=== PATIENT | male | born 1945 | race African-American/Black ===

== ENCOUNTER 2021-10-16 10:54 | Inpatient (IN) | payer OTHER ==
[~2021-10-16] VITALS: Ht 175.3 cm; Wt 88.0 kg
[2021-10-16] MEDS ORDERED: HEPARIN SODIUM (PORCINE) 5000 UNITS/ML 1ML VIAL ONE (11:14)
[2021-10-16] MEDS ORDERED: HEPARIN 1,000 UNITS/ml 1ML VIAL IV ONE (11:15)
[2021-10-16 11:30] LABS: Basophils # (auto) 0 10 ^3/uL (0-0.2); Basophils % (auto) 0.4 % (0.0-2.0); Eosinophils # (auto) 0.1 10 ^3/uL (0-0.8); Eosinophils % (auto) 0.9 % (0.0-7.0); Hematocrit 36.3 % (41.0-53.0); Hemoglobin 12.1 g/dL (13.5-17.5); Lymphocytes % (auto) 24.4 % (10.0-50.0); Mean Corpuscular Hemoglobin 27.9 pg (28.0-32.0); Mean Corpuscular Hgb Conc. 33.3 g/dL (32.0-36.0); Mean Corpuscular Volume 83.9 fL (80.0-100.0); Monocytes # (auto) 0.6 10 ^3/uL (0-1.3); Monocytes % (auto) 7.7 % (0.0-12.0); Neutrophils # (auto) 5.6 10 ^3/uL (1.6-8.6); Neutrophils % (auto) 66.6 % (37.0-80.0); Nucleated Red Blood Cells % 0.1 %; Red Blood Cells 4.32 10^6/uL (4.5-5.90); Red Cell Distribution Width 14.7 % (11.8-14.3); White Blood Cell 8.4 10^3/uL (4.4-10.8)
[2021-10-16] MEDS ORDERED: MORPHINE SULFATE INJECTION 2 MG/ML SYRG IV ONE (11:30)
[2021-10-16] MEDS ORDERED: ONDANSETRON HCL 4 MG/2 ML VIAL IV ONE (11:30)
[2021-10-16 12:30] LABS: Albumin 3.4 g/dL (3.4-5.0); Calcium 8.6 mg/dL (8.5-10.1); Magnesium 2.7 mg/dL (1.6-2.6)
[2021-10-16 12:31] LABS: INR 1.1 (0.9-1.15)
[2021-10-16 12:38] LABS: Bilirubin, Total 0.5 mg/dL (0.2-1.0); Total Protein 6.8 g/dL (6.4-8.2)
[2021-10-16 12:51] LABS: Partial Thromboplastin Time 88.9 sec (23.6-33.0)
[2021-10-16] MEDS ORDERED: NITROGLYCERIN 0.4 MG SL TAB SL PRN ×2 (13:15→15:00)
[2021-10-16] MEDS ORDERED: ONDANSETRON HCL 4 MG/2 ML VIAL IV PRN (13:15)
[2021-10-16] MEDS ORDERED: LACTATED RINGER'S 1,000 ML IV ONE (13:15)
[2021-10-16] MEDS ORDERED: DEXTROSE (50%) 50ML SYRG IV PRN (13:15)
[2021-10-16] MEDS ORDERED: MORPHINE SULFATE INJECTION 2 MG/ML SYRG IV PRN ×3 (13:15→15:00)
[2021-10-16] MEDS ORDERED: INSU1INJ4 SC (13:37)
[2021-10-16] MEDS ORDERED: OXYC325T10 PO (13:37)
[2021-10-16] MEDS ORDERED: ASPI-498 PO (13:37)
[2021-10-16] MEDS ORDERED: TAMS0.4C36 PO (13:37)
[2021-10-16] MEDS ORDERED: SIMV-8 PO (13:37)
[2021-10-16] MEDS ORDERED: LISI2.5T47 PO (13:37)
[2021-10-16] MEDS ORDERED: GABA300C10 PO (13:38)
[2021-10-16] MEDS ORDERED: ALUM & MAG HYDROX-SIMETH LIQ(MAALOX) 30 ML PO PRN (15:00)
[2021-10-16] MEDS ORDERED: ACETAMINOPHEN 325 MG TAB PO PRN (15:00)
[2021-10-16] MEDS ORDERED: TEMAZEPAM 15 MG CAP PO PRN (15:00)
[2021-10-16] MEDS ORDERED: DOCUSATE SOD 100 MG CAP PO PRN (15:00)
[2021-10-16] MEDS ORDERED: ATORVASTATIN 20 MG TAB PO ONE (15:00)
[2021-10-16] MEDS ORDERED: METOCLOPRAMIDE HCL 5MG/ml INJ 2ml VIAL IV PRN (15:00)
[2021-10-16] MEDS ORDERED: hydrALAZINE HCL 20 MG/ML VL IV PRN (15:00)
[2021-10-16 15:15] LABS: Cholesterol 147 mg/dL (< 200); HDL Cholesterol 82 mg/dL (40-59); LDL Cholesterol 48 mg/dL (< 100); Triglycerides 49 mg/dL (< 150)
[2021-10-16] MEDS: SODIUM CHLORIDE 0.9% 1,000 ML IV SCH ×2 (15:30→15:58)
[2021-10-16] MEDS ORDERED: CLOPIDOGREL 300 MG TAB PO ONE (17:00)
[2021-10-16] MEDS: ACCU-CHEK COMFORT CURVE STRIP VI SCH ×2 (17:08→22:15)
[2021-10-16] MEDS: InsuLIN REG 1unit/0.01ml Soln (100units/ml) SC SCH ×2 (17:34→22:34)
[2021-10-16] MEDS: TAMSULOSIN HYDROCHLORIDE 0.4 MG CAP PO SCH (17:54)
[2021-10-16] MEDS ORDERED: FUROSEMIDE 20 MG/2 ML VIAL IV SCH (18:00)
[2021-10-16] MEDS ORDERED: ISOSORBIDE MONONITRATE 20 MG TAB PO SCH (22:00)
[2021-10-16] MEDS ORDERED: hydrALAZINE HCL 25 MG TAB PO SCH (22:00)
[2021-10-16] MEDS ORDERED: ENOXAPARIN SOD 80 MG/0.8ML SYRINGE SC SCH (22:00)
[2021-10-16] MEDS: ACETYLCYSTEINE ORAL for CIN 20%(200MG/ML) 4ML PO SCH (22:35)
[2021-10-16] MEDS: ATORVASTATIN 20 MG TAB PO SCH (22:36)
[2021-10-16] MEDS: MORPHINE SULFATE INJECTION 2 MG/ML SYRG IV PRN (22:41)
[2021-10-17] VITALS (7 sets, daily range): BP systolic 104–133; BP diastolic 57–79
[2021-10-17 02:13] LABS: Alcohol, Urine < 3.0 mg/dL (0-10); Amphetamine Screen, Urine NEGATIVE (NEGATIVE); Barbiturate Scree,Urine NEGATIVE (NEGATIVE); Benzodiazephine Screen, Urine NEGATIVE (NEGATIVE); Cannabinoid Screen, Urine NEGATIVE (NEGATIVE); Cocaine Screen, Urine NEGATIVE (NEGATIVE)
[2021-10-17 02:23] LABS: Opiate Scree,Urine POSITIVE (NEGATIVE); Phencyclidine Screen, Urine NEGATIVE (NEGATIVE)
[2021-10-17 02:40] LABS: Urine Bacteria NONE SEEN /hpf (None Seen); Urine Blood Negative /uL (Negative); Urine Specific Gravity 1.012 (1.001-1.035); Urine WBC <1 /hpf (0 - 3)
[2021-10-17] MEDS: MORPHINE SULFATE INJECTION 2 MG/ML SYRG IV PRN ×3 (04:08→16:46)
[2021-10-17 05:49] LABS: Basophils # (auto) 0 10 ^3/uL (0-0.2); Basophils % (auto) 0.4 % (0.0-2.0); Eosinophils # (auto) 0.1 10 ^3/uL (0-0.8); Eosinophils % (auto) 1.8 % (0.0-7.0); Hematocrit 36.2 % (41.0-53.0); Hemoglobin 12.2 g/dL (13.5-17.5); Lymphocytes # (auto) 1.8 10 ^3/uL (0.4-5.4); Mean Corpuscular Hemoglobin 27.9 pg (28.0-32.0); Mean Corpuscular Hgb Conc. 33.7 g/dL (32.0-36.0); Mean Corpuscular Volume 82.8 fL (80.0-100.0); Monocytes # (auto) 0.7 10 ^3/uL (0-1.3); Monocytes % (auto) 10.6 % (0.0-12.0); Neutrophils # (auto) 3.6 10 ^3/uL (1.6-8.6); Neutrophils % (auto) 58.2 % (37.0-80.0); Nucleated Red Blood Cells % 0.1 %; Red Blood Cells 4.37 10^6/uL (4.5-5.90); Red Cell Distribution Width 15.2 % (11.8-14.3); White Blood Cell 6.2 10^3/uL (4.4-10.8)
[2021-10-17 06:07] LABS: INR 1.08 (0.9-1.15); Partial Thromboplastin Time 31.9 sec (23.6-33.0)
[2021-10-17 06:09] LABS: Potassium 4.7 mmol/L (3.5-5.1)
[2021-10-17] MEDS: ACCU-CHEK COMFORT CURVE STRIP VI SCH ×4 (06:13→22:24)
[2021-10-17] MEDS: InsuLIN REG 1unit/0.01ml Soln (100units/ml) SC SCH ×4 (06:13→22:24)
[2021-10-17 06:23] LABS: Albumin 3.1 g/dL (3.4-5.0); BUN/Creatinine Ratio 14.3; Bilirubin, Total 0.6 mg/dL (0.2-1.0); Calcium 8.7 mg/dL (8.5-10.1); Magnesium 2.7 mg/dL (1.6-2.6); Phosphorus 3.7 mg/dL (2.5-4.90); Total Protein 6.7 g/dL (6.4-8.2); Uric Acid 6.4 mg/dL (3.5-7.2)
[2021-10-17] MEDS ORDERED: LIDOCAINE 2%HCL (LOCAL ANESTH.) INJ 20ML MDV ONE (08:26)
[2021-10-17] MEDS ORDERED: IODIXANOL 320MG/ML 100ML BTL IV ONE ×2 (08:26→09:20)
[2021-10-17] MEDS ORDERED: ANGIOMAX 250 MG VIAL IV ONE (08:35)
[2021-10-17] MEDS ORDERED: fentaNYL CITRATE 100 MCG/2 ML VL ONE (08:35)
[2021-10-17] MEDS ORDERED: SODIUM CHL 0.9% 50 ML ONE (08:36)
[2021-10-17] MEDS ORDERED: MIDAZOLAM HCL 2MG/2ML 2ml VIAL (1mg/ml) ONE (08:36)
[2021-10-17] MEDS ORDERED: ATROPINE SULF 1 MG/10ml SYR ONE (09:09)
[2021-10-17] MEDS ORDERED: CLOPIDOGREL 300 MG TAB ONE (09:21)
[2021-10-17] MEDS: ASPirin 81 mg TAB PO SCH (10:00)
[2021-10-17] MEDS: ACETYLCYSTEINE ORAL for CIN 20%(200MG/ML) 4ML PO SCH ×2 (10:00→22:30)
[2021-10-17] MEDS: HYDROcodone-ACET 5/325MG TAB PO PRN (10:01)
[2021-10-17] MEDS: TAMSULOSIN HYDROCHLORIDE 0.4 MG CAP PO SCH (17:34)
[2021-10-17] MEDS ORDERED: ATORVASTATIN 20 MG TAB PO SCH (22:00)
[2021-10-17] MEDS: ATORVASTATIN 20 MG TAB PO SCH (22:20)
[2021-10-18] MEDS: HYDROcodone-ACET 5/325MG TAB PO PRN ×2 (03:03→12:25)
[2021-10-18 05:00] VITALS: BP 114/68
[2021-10-18 05:41] LABS: Calcium 8.7 mg/dL (8.5-10.1); Potassium 4.2 mmol/L (3.5-5.1)
[2021-10-18 05:42] LABS: BUN/Creatinine Ratio 11.9
[2021-10-18] MEDS: InsuLIN REG 1unit/0.01ml Soln (100units/ml) SC SCH ×2 (06:19→12:50)
[2021-10-18] MEDS: ACCU-CHEK COMFORT CURVE STRIP VI SCH ×2 (06:20→11:30)
[2021-10-18 09:00] VITALS: BP 127/70
[2021-10-18] MEDS ORDERED: CLOPIDOGREL BISULFATE 75 MG TAB PO SCH (10:00)
[2021-10-18] MEDS: ASPirin 81 mg TAB PO SCH (10:03)
[2021-10-18 13:00] VITALS: BP 132/75
[2021-10-18] MEDS: SODIUM CHLORIDE 0.9% 1,000 ML IV SCH (15:00)
[2021-10-18 17:00] VITALS: BP 105/89
== END 2021-10-18 18:40 | disposition home or self-care (01) | DRG 246 ==
LOC: ER 10:54 → EDBD 10:54 → TELE 13:13 → TELE-WESTW 23:39
PROVIDERS: ADMIT Hospitalist; ATTEND Internal Medicine Geriatric Medicine
PROC: 027034Z Dilation of Coronary Artery, One Artery with Drug-eluting Intraluminal Device, Percutaneous Approach (ICD-10-PCS; principal; 2021-10-17)
PROC: 4A023N7 Measurement of Cardiac Sampling and Pressure, Left Heart, Percutaneous Approach (ICD-10-PCS; 2021-10-17)
PROC: B211YZZ Fluoroscopy of Multiple Coronary Arteries using Other Contrast (ICD-10-PCS; 2021-10-17)
PROC: B215YZZ Fluoroscopy of Left Heart using Other Contrast (ICD-10-PCS; 2021-10-17)
PROC: B240ZZ3 Ultrasonography of Single Coronary Artery, Intravascular (ICD-10-PCS; 2021-10-17)
DX: I21.4 Non-ST elevation (NSTEMI) myocardial infarction (principal); G93.41 Metabolic encephalopathy; N17.9 Acute kidney failure, unspecified; E11.649 Type 2 diabetes mellitus with hypoglycemia without coma; K75.81 Nonalcoholic steatohepatitis (NASH); E11.65 Type 2 diabetes mellitus with hyperglycemia; I25.10 Atherosclerotic heart disease of native coronary artery without angina pectoris; N18.31 Chronic kidney disease, stage 3a; N40.0 Benign prostatic hyperplasia without lower urinary tract symptoms; D64.9 Anemia, unspecified; E11.22 Type 2 diabetes mellitus with diabetic chronic kidney disease; E66.3 Overweight; E78.5 Hyperlipidemia, unspecified; Z20.822 Contact with and (suspected) exposure to COVID-19; I12.9 Hypertensive chronic kidney disease with stage 1 through stage 4 chronic kidney disease, or unspecified chronic kidney disease; J38.3 Other diseases of vocal cords; R09.02 Hypoxemia; R10.31 Right lower quadrant pain; R00.1 Bradycardia, unspecified; Z79.4 Long term (current) use of insulin; Z79.899 Other long term (current) drug therapy; Z98.61 Coronary angioplasty status; Z68.28 Body mass index [BMI] 28.0-28.9, adult
CPT/HCPCS: 36415; 70450; 71045; 80048; 80053; 80061; 80307; 81001; 82306; 82607; 82962; 83036; 83735; 83880; 84100; 84443; 84484; 84550; 85025; 85379; 85610; 85730; 86850; 86900; 86901; 87040; 87086; 87426; 92928; 92978; 93005; 93306; 93458; 93886; 96374; 96375; 99152; 99153; 99291; C1874; G0378; J1815; J2250; J2405; Q9967

== ENCOUNTER → 2024-07-05 | Emergency (ER) | payer OTHER ==
[~2024-07-05] VITALS: Ht 175.3 cm; Wt 81.8 kg
[~2024-07-05] MED LIST: ASPI-498 PO; GABA-1250 PO; INSU1INJ4 SC; LISI2.5T47 PO; OXYC325T10 PO; SIMV20TA20 PO; TAMS0.4C39 PO
[2024-07-05 10:37] VITALS: BP 102/62; RESP 18; O2SAT 96
[2024-07-05 10:38] VITALS: PULSE 94
[2024-07-05 11:07] LABS: Basophils # (auto) 0 10 ^3/uL (0-0.2); Basophils % (auto) 0.7 % (0.0-2.0); Eosinophils # (auto) 0 10 ^3/uL (0-0.8); Eosinophils % (auto) 1.4 % (0.0-7.0); Hematocrit 38.2 % (41.0-53.0); Lymphocytes # (auto) 1.1 10 ^3/uL (0.4-5.4); Lymphocytes % (auto) 33.2 % (10.0-50.0); Mean Corpuscular Hemoglobin 28.5 pg (28.0-32.0); Mean Corpuscular Volume 83.8 fL (80.0-100.0); Monocytes # (auto) 0.6 10 ^3/uL (0-1.3); Monocytes % (auto) 16.6 % (0.0-12.0); Neutrophils # (auto) 1.7 10 ^3/uL (1.6-8.6); Neutrophils % (auto) 48.1 % (37.0-80.0); Nucleated Red Blood Cells % 0.1 %; Platelet Count (auto) 112 10^3/uL (140-450); Red Blood Cells 4.55 10^6/uL (4.5-5.90); Red Cell Distribution Width 14.4 % (11.8-14.3); White Blood Cell 3.5 10^3/uL (4.4-10.8)
[2024-07-05 11:14] LABS: Carbon Dioxide 23 mmol/L (20-30); Chloride 105 mmol/L (98-107); Potassium 4.4 mmol/L (3.5-5.1)
[2024-07-05 11:15] LABS: Calcium 9.6 mg/dL (8.7-10.4)
[2024-07-05 11:20] LABS: Blood Urea Nitrogen 23 mg/dL (9-23); Glucose 253 mg/dL (74-106)
[2024-07-05 11:50] LABS: Anion Gap 9 (5-15); Sodium 137 mmol/L (136-145)
[2024-07-05 16:02] LABS: Rapid Influenza A Negative (Negative); Rapid Influenza B Negative (Negative)
[2024-07-05 16:06] LABS: COVID19 ANTIGEN SOFIA FIA POSITIVE (NEGATIVE)
== END | disposition home or self-care (01) ==
LOC: ER 10:22
DX: U07.1 COVID-19 (principal); N28.9 Disorder of kidney and ureter, unspecified; E11.9 Type 2 diabetes mellitus without complications; I10 Essential (primary) hypertension
CPT/HCPCS: 36415; 80048; 85025; 87426; 87804; 93005

== ENCOUNTER 2025-08-25 14:13 | Inpatient (IN) | payer OTHER ==
[~2025-08-25] VITALS: Ht 175.3 cm; Wt 79.0 kg
--- NOTE | 2025-08-25 14:24 | ED.PDOC ---
History of Present Illness HPI Comments 80-year-old male brought by paramedics from home because he was having chest discomfort generalized weakness with sweating which started this morning. Patient blood pressure on arrival was systolic in the 70s. Patient was given some fluids which helped increase the blood pressure prior to coming to the ER. He does have a history of hypertension diabetes. Denies any other symptoms. Time Seen by MD: 14:20 Primary Care Provider: UNKNOWN Reviewed Notes: Nurses Notes, Medications, Allergies Allergies: Coded Allergies: NO KNOWN ALLERGIES (Unverified , 10/16/21) Home Meds Reported Medications Gabapentin (Gabapentin) 300 Mg Cap, 300 MG PO BID 10/16/21 Oxycodone W/ Acetaminophen (Apap/Oxycodone) 1 Tab Tab, 10-325 MG PO Q6HP 10/16/21 Insulin NPH (Human) (Isophane) (Humulin N Kwikpen) 100 Unit/Ml Inj, 20 UNITS SC BID 10/16/21 Aspirin (ASPIRIN 81) 81 Mg Tab, 81 MG PO DAILY 10/16/21 Lisinopril (Lisinopril) 2.5 Mg Tab, 1 TAB PO DAILY 10/16/21 Tamsulosin Hcl (Tamsulosin Hcl) 0.4 Mg Cap, 1 CAP PO DAILY 10/16/21 Simvastatin (Simvastatin) 20 Mg Tab, 1 TAB PO DAILY 10/16/21 Information Source: Patient, Emergency Med Personnel Mode of Arrival: EMS Severity: Moderate Timing: Hours Duration: Since onset Past Medical History PAST MEDICAL HISTORY: CAD, DM, HTN Surgical History: PTCA Family History Family History: Reviewed,noncontributory to illness Social History Smoker: Non-Smoker Alcohol: Denies ETOH Use Drugs: Denies Drug Use Lives In: Home Constitutional: denies: chills, diaphoresis, fatigue, fever, malaise, sweats, weakness, others EENTM: denies: blurred vision, double vision, ear bleeding, ear discharge, ear drainage, ear pain, ear ringing, eye pain, eye redness, hearing loss, mouth pain, mouth swelling, nasal discharge, nose bleeding, nose congestion, nose pain, photophobia, tearing, throat pain, throat swelling, voice changes, others Respiratory: denies: cough, hemoptysis, orthopnea, SOB at rest, shortness of breath, SOB with excertion, stridor, wheezing, others Cardiovascular: reports: chest pain; denies: dizzy spells, diaphoresis, Dyspnea on exertion, edema, irregular heart beat, left arm pain, lightheadedness, palpitations, PND, syncope, others Gastrointestinal: denies: abdomen distended, abdominal pain, blood streaked bowels, constipated, diarrhea, dysphagia, difficulty swallowing, hematemesis, melena, nausea, poor appetite, poor fluid intake, rectal bleeding, rectal pain, vomiting, others Genitourinary: denies: burning, dysuria, flank pain, frequency, hematuria, incontinence, penile discharge, penile sore, pain, testicle pain, testicle swelling, urgency, others Neurological: reports: weakness; denies: dizziness, fainting, headache, left sided numbness, left sided weakness, numbness, paresthesia, pre-existing d eficit, right sided numbness, right sided weakness, seizure, speech problems, tingling, tremors, others Musculoskeletal: denies: back pain, gout, joint pain, joint swelling, muscle pain, muscle stiffness, neck pain, others Integumetry: denies: bruises, change in color, change in hair/nails, dryness, laceration, lesions, lumps, rash, wounds, others Allergic/Immunocompromised: denies: Difficulty Healing, Frequent Infections, Hives, Itching, others Hematologic/Lymphatic: denies: anemia, blood clots, easy bleeding, easy bruising, swollen glands, others Endocrine: denies: excessive hunger, excessive sweating, excessive thirst, excessive urination, flushing, intolerance to cold, intolerance to heat, unexplained weight gain, unexplained weight loss, others Psychiatric: denies: anxiety, bipolar disorder, depression, hopeless, panic disorder, schizophrenia, sleepless, suicidal, others Physical Exam General Appearance: Moderate Distress HEENT: Normal ENT Inspection, Pharynx Normal, TMs Normal Neck: Full Range of Motion, Non-Tender, Normal, Normal Inspection Respiratory: Chest Non-Tender, Lungs Clear, No Accessory Muscle Use, No Respiratory Distress, Normal Breath Sounds Cardiovascular: No Edema, No JVD, No Murmur, No Gallop, Normal Peripheral Pulses, Regular Rate/Rhythm Breast Exam: Deferred Gastrointestinal: No Organomegaly, Non Tender, No Pulsatile Mass, Normal Bowel Sounds, Soft Genitalia: Deferred Pelvic: Deferred Rectal: Deferred Extremities: No calf tenderness, Normal capillary refill, Normal inspection, Normal range of motion, Non-tender, No pedal edema Musculoskeletal : Apperance: Normal Neurologic: Alert, dining manager II-XII nml as Tested, No Motor Deficits, Normal Affect, Normal Mood, No Sensory Deficits Cerebellar Function: Normal Reflexes: Normal Skin: Dry, Normal Color, Warm Peripheral Pulses: 3+ Radial (R), 3+ Radial (L) Lymphatic: No Adenopathy Was a procedure done? Was a procedure done?: No Differential Dx Considerations may include: Chest pain Electrolyte imbalance X-Ray, Labs, Meds, VS Patient alert. Came in because of chest pain. Generalized weakness. Vitals stable. Answering questions. Hypotension in the field. Establish intravenous access. Was given fluids. Explained to the patient. Continue monitoring. Time of 1ST Reevaluation: 14:22 Reevaluation 1ST: Unchanged Patient Education/Counseling: Diagnosis, Treatment, Prognosis Family Education/Counseling: No Family Present Departure 1 Departure Time of Disposition: 14:23 Impression: Primary Impression: Chest pain of unknown etiology Additional Impressions: Generalized weakness Hypotension Qualified Codes: I95.9 - Hypotension, unspecified Disposition: 09 ADMITTED INPATIENT Admit to: Med Surg Condition: Guarded Critical Care Note Critical Care Time?: Yes (90 min-critical care time only) Stability Stability form required: No Heart Score Heart Score: Heart Score Response (Comments) Value History Slightly Suspicious 0 EKG Normal 0 Age >65 2 Risk Factors >3 or Hx ASHD 2 Troponin Normal limit 0 Total 4 NANCY ROCKWELL MD Aug 25, 2025 14:24
[2025-08-25] MEDS: SODIUM CHLORIDE 0.9% 1,000 ML IV ONE ×2 (14:48→20:00)
--- NOTE | 2025-08-25 14:49 | ECG ---
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
[2025-08-25 14:53] LABS: Hematocrit 41.0 % (41.0-53.0); Hemoglobin 13.3 g/dL (13.5-17.5); Mean Corpuscular Hemoglobin 27.4 pg (28.0-32.0); Mean Corpuscular Volume 84.5 fL (80.0-100.0); Nucleated Red Blood Cells % 0.1 %
--- NOTE | 2025-08-25 14:57 | DVH ---
EXAM: XY CHEST PORTABLE Indication: sob Technique: Single frontal view of the chest was obtained Comparison: CHEST PORTABLE on DOS: 10/16/21 FINDINGS: Lines and Tubes: None Lungs: No focal consolidation. Pleura: No effusion. No pneumothorax. Cardiomediastinal contours: Unremarkable Bones: No acute osseous abnormality. IMPRESSION: No acute cardiopulmonary disease.
[2025-08-25 15:00] VITALS: PULSE 78; O2SAT 100
[2025-08-25 15:26] LABS: Potassium 4.9 mmol/L (3.5-5.1); Sodium 140 mmol/L (136-145)
[2025-08-25 15:27] LABS: Anion Gap 12 (5-15); Carbon Dioxide 20 mmol/L (20-31)
[2025-08-25 15:28] LABS: Calcium 9.4 mg/dL (8.7-10.4)
--- NOTE | 2025-08-25 15:28 | DVH ---
EXAM: CT HEAD WITHOUT CONTRAST INDICATION: tia TECHNIQUE: CT of the head without intravenous contrast. Radiation Dose Information: CT Dose: CTDI volume is 66.47 mGy. Dose-length product is 1176.65 mGy*cm The dose indicators for CT are the volume Computed Tomography (CT) Dose Index (CTDIvol) and the Dose Length Product (DLP), and are measured in units of mGy and mGy-cm, respectively. These indicators are not patient dose, but values generated from the CT scanner acquisition factors. The report includes radiation exposure data for exposures received during this examination. COMPARISON: HEAD WITHOUT CONTRAST on DOS: 10/16/21 FINDINGS: There is no evidence of acute intracranial hemorrhage, extra-axial collection, mass effect, midline s hift, herniation or hydrocephalus. The ventricles, sulci and cisterns are age appropriate. The brizuela-white differentiation is intact. Patchy periventricular and subcortical white matter hypoattenuation is nonspecific but may be related to small vessel ischemic disease. The visualized paranasal sinuses and mastoid air cells are clear. The surrounding soft tissues and osseous structures are unremarkable. IMPRESSION: No acute intracranial abnormality.
[2025-08-25 15:31] LABS: Chloride 108 mmol/L (98-107)
[2025-08-25 15:32] LABS: BUN/Creatinine Ratio 18.3 (10.0-20.0)
[2025-08-25 15:33] LABS: Blood Urea Nitrogen 31 mg/dL (9-23); Glucose 187 mg/dL (74-106)
[2025-08-25 18:04] LABS: Urine Protein, UAD Negative (Negative)
[2025-08-25] MEDS ORDERED: DEXTROSE (50%) 50ML SYRG IV PRN (19:30)
[2025-08-25] MEDS ORDERED: ACETAMINOPHEN 325 MG TAB PO PRN (19:30)
[2025-08-25] MEDS ORDERED: ONDANSETRON HCL 4 MG/2 ML VIAL IV PRN (19:30)
[2025-08-25 21:44] VITALS: BP 144/77; PULSE 66; RESP 17; TEMP 97.3; O2SAT 99
--- NOTE | 2025-08-25 21:44 | DVHHP2 ---
History of Present Illness Reason for Visit: Generalized weakness History of Present Illness 80-year-old male presents for evaluation of generalized weakness. Patient reports a one day history of generalized weakness with associated dizziness and diaphoresis. On arrival patient's blood pressure was noted to be in the 70s. Currently patient's blood pressures in the one teens. He denies dizziness. No chest pain or shortness for breath. No other acute complaints. Past Medical History Hypertension, diabetes mellitus, CAD Past Surgical History PTCA Family History Noncontributory Smoke: No ALCOHOL: none Drugs: None Lives: with Family Review of Systems Review of Systems Review of systems are currently negative otherwise addressed in HPI. Allergies: Coded Allergies: NO KNOWN ALLERGIES (Unverified , 10/16/21) Medications Current Medications Medications Dose Ordered Sig/Rose Mary Route Start Time Stop Time Status Last Admin Dose Admin Diagnostic Test (Pha) 1 strip ACHS 08/25/25 22:00 Insulin Human Regular ACHS SC 08/25/25 22:00 Dextrose 50 ml UD PRN IV 08/25/25 19:30 Ondansetron HCl 4 mg Q4HP PRN IV 08/25/25 19:30 Acetaminophen 650 mg Q6HP PRN PO 08/25/25 19:30 Exam Vital Signs Vital Signs Date Time Temp Pulse Resp B/P (MAP) Pulse Ox O2 Delivery O2 Flow Rate FiO2 08/25/25 21:00 97.8 72 11 121/63 (82) 98 97.8 08/25/25 15:00 Room Air* 0 21 Exam Gen: 80-year-old male in mild distress. Skin: Warm, dry, normal color and texture, no rash. HEENT: Normocephalic atraumatic, mucous membranes moist and pink. Neck: Cervical and supraclavicular nodes normal without enlargement, trachea is midline, thyroid gland is normal without masses. Pulmonary: Clear to auscultation and percussion bilaterally. Cardiac: Regular rate and rhythm. No murmur Abdomen: Soft, nontender, nondistended, bowel sounds present all 4 quadrants, no guarding, no rigidity, no organomegaly. Extremities: No cyanosis, clubbing, no edema Neuro: Cranial nerves II through XII grossly intact, normal affect and speech, no focal motor deficits. Labs/Xrays ORDERING PHYSICIAN: NANCY ROCKWELL MD PROCEDURE(s): CXRP - CHEST PORTABLE REASON: sob ORDER NUMBER(s): [id number], ACCESSION NUMBER(s): [id number] EXAM: XY CHEST PORTABLE Indication: sob Technique: Single frontal view of the chest was obtained Comparison: CHEST PORTABLE on DOS: 10/16/21 FINDINGS: Lines and Tubes: None Lungs: No focal consolidation. Pleura: No effusion. No pneumothorax. Cardiomediastinal contours: Unremarkable Bones: No acute osseous abnormality. IMPRESSION: No acute cardiopulmonary disease. RING PHYSICIAN: NANCY ROCKWELL MD PROCEDURE(s): HWOCT - HEAD WITHOUT CONTRAST REASON: tia ORDER NUMBER(s): [id number], ACCESSION NUMBER(s): [id number] EXAM: CT HEAD WITHOUT CONTRAST INDICATION: tia TECHNIQUE: CT of the head without intravenous contrast. Radiation Dose Information: CT Dose: CTDI volume is 66.47 mGy. Dose-length product is 1176.65 mGy*cm The dose indicators for CT are the volume Computed Tomography (CT) Dose Index (CTDIvol) and the Dose Length Product (DLP), and are measured in units of mGy and mGy-cm, respectively. These indicators are not patient dose, but values generated from the CT scanner acquisition factors. The report includes radiation exposure data for exposures received during this examination. COMPARISON: HEAD WITHOUT CONTRAST on DOS: 10/16/21 FINDINGS: There is no evidence of acute intracranial hemorrhage, extra-axial collection, mass effect, midline shift, herniation or hydrocephalus. The ventricles, sulci and cisterns are age appropriate. The brizuela-white differentiation is intact. Patchy periventricular and subcortical white matter hypoattenuation is nonspecific but may be related to small vessel ischemic disease. The visualized paranasal sinuses and mastoid air cells are clear. The surrounding soft tissues and osseous structures are unremarkable. IMPRESSION: No acute intracranial abnormality. Labs Test 08/25/25 19:56 08/25/25 17:30 08/25/25 16:45 08/25/25 15:46 Range/Units Thyroid Stimulating Hormone (TSH) 1.64 0.55-4.78 uIU/mL Urine Color Light-yellow Yellow Urine Clarity Clear Clear Urine pH 5.5 5.0-9.0 Urine Specific [place] 1.015 1.001-1.035 Urine Protein Negative Negative Urine Ketones Trace Negative Urine Blood Negative Negative /uL Urine Nitrite Negative Negative Urine Bilirubin Negative Negative Urine Urobilinogen Normal Negative mg/dL Urine Leukocyte Esterase Negative Negative /uL Urine RBC 1 0 - 3 /hpf Urine Microscopic WBC 0-3 /HPF Urine Squamous Epithelial Cells Few <5 /hpf Urine Bacteria None seen None Seen /hpf Urine Glucose 4+ H Normal mg/dL POC Glucose 177 H 70-106 mg/dl Troponin I High Sensitivity 3 L </=54 ng/L Test 08/25/25 14:40 Range/Units White Blood Count 5.4 4.4-10.8 10^3/uL Red Blood Count 4.85 4.5-5.90 10^6/uL Hemoglobin 13.3 L 13.5-17.5 g/dL Hematocrit 41.0 41.0-53.0 % Mean Corpuscular Volume 84.5 80.0-100.0 fL Mean Corpuscular Hemoglobin 27.4 L 28.0-32.0 pg Mean Corpuscular Hemoglobin Concent 32.4 32.0-36.0 g/dL Red Cell Distribution Width 15.9 H 11.8-14.3 % Platelet Count 104 L 140-450 10^3/uL Mean Platelet Volume 7.9 6.9-10.8 fL Neutrophils (%) (Auto) 63.5 37.0-80.0 % Lymphocytes (%) (Auto) 25.2 10.0-50.0 % Monocytes (%) (Auto) 8.8 0.0-12.0 % Eosinophils (%) (Auto) 1.7 0.0-7.0 % Basophils (%) (Auto) 0.8 0.0-2.0 % Neutrophils # (Auto) 3.4 1.6-8.6 10 ^3/uL Lymphocytes # (Auto) 1.4 0.4-5.4 10 ^3/uL Monocytes # (Auto) 0.5 0-1.3 10 ^3/uL Eosinophils # (Auto) 0.1 0-0.8 10 ^3/uL Basophils # (Auto) 0 0-0.2 10 ^3/uL Nucleated Red Blood Cells 0.1 % Sodium Level 140 136-145 mmol/L Potassium Level 4.9 3.5-5.1 mmol/L Chloride Level 108 H 98-107 mmol/L Carbon Dioxide Level 20 20-31 mmol/L Anion Gap 12 5-15 Blood Urea Nitrogen 31 H 9-23 mg/dL Creatinine 1.69 H 0.700-1.30 mg/dL Glomerular Filtration Rate Calc 40 >90 mL/min BUN/Creatinine Ratio 18.3 10.0-20.0 Serum Glucose 187 H 74-106 mg/dL Calcium Level 9.4 8.7-10.4 mg/dL SEPSIS Sepsis Screen Date sepsis recognized/suspect: Aug 25, 2025 Time Sepsis recognized/suspect: 1699 Recent Procedure: No On Antibiotic Therapy: No Respiratory Rate >20: No Heart Rate >90: No Temp<36 C (96.8 F) or >38.3 C: No SBP <90 or MAP <65 mmHG: No New Acute Mental Status Change: No Is the patient on CPAP, BIPAP,: No Physician Orders Chest Portable (08/25/25 14:26) Head Without Contrast (08/25/25 14:33) Sodium Chloride 0.9% (08/25/25 17:30) Orthostatic Vital Signs (08/25/25 19:27) Basic Metabolic Panel (08/26/25 04:00) Glucose Blood (Accu-Chek Comfort Curve T (08/25/25 22:00) Dextrose 50% Syringe (08/25/25 19:30) Admit (08/25/25 19:27) Renal Standard(2gna,3gk,Lopho) (08/26/25 Breakfast) Ondansetron Hcl (Zofran) (08/25/25 19:30) Echo 2d Mode Cardiac Dop (08/25/25 19:27) Condition: Stable (08/25/25 19:27) Acetaminophen Tablet (Tylenol Tablet) (08/25/25 19:30) Bedrest With Bathroom Privileg (08/25/25 19:27) Insulin R (Human) (Insulin R) (08/25/25 22:00) Vital Signs Date Time Temp Pulse Resp B/P (MAP) Pulse Ox O2 Delivery O2 Flow Rate FiO2 08/25/25 21:00 97.8 72 11 121/63 (82) 98 97.8 10/29/25 19:00 98.1 66 12 116/64 (81) 98 98.1 08/25/25 17:00 97.6 73 17 116/55 (75) 98 97.6 08/25/25 15:00 78 100 Room Air* 0 21 08/25/25 15:00 97.9 78 12 110/53 (72) 100 97.9 08/25/25 14:43 79 08/25/25 14:28 98.3 74 20 110/70 99 98.3 Laboratory Tests Test 08/25/25 14:40 White Blood Count 5.4 10^3/uL (4.4-10.8) Medications Medications Dose Ordered Sig/Rose Mary Route Start Time Stop Time Status Last Admin Dose Admin Aspirin 325 mg ONCE ONCE PO 08/25/25 14:30 08/25/25 14:31 DC 08/25/25 14:48 325 MG Sodium Chloride 1,000 ml @ 150 mls/hr Q6H40M ONCE IV 08/25/25 17:30 08/26/25 00:09 08/25/25 20:00 150 MLS/HR Sodium Chloride 1,000 ml @ 1,000 mls/hr Q1H ONCE IV 08/25/25 14:30 08/25/25 15:29 DC 08/25/25 14:48 1,000 MLS/HR Assessment/Plan Assessment/Plan Assessment Symptomatic hypotension Diabetes mellitus Chronic kidney disease Plan Admit the patient to [facility] to the hospitalist Maintenance IV fluids Orthostatic vital signs Echocardiogram pending Resume home medications Hold antihypertensives Continue treatment per orders. Plan discussed with: Patient My Orders Orders - ANDRES NEGRETE Procedure Category Date Status Time Orthostatic Vital ORDERS 08/25/25 Transmitted Signs 19:27 Basic Metabolic Panel LAB 08/26/25 Verified 04:00 Glucose Blood PHA 08/25/25 In Process (Accu-Chek Comfort 22:00 Dextrose 50% Syringe PHA 08/25/25 In Process 19:30 Admit ADMIT 08/25/25 Transmitted 19:27 Renal DIET 08/26/25 Transmitted Standard(2gna,3gk,Lopho) Breakfast Ondansetron Hcl PHA 08/25/25 In Process (Zofran) 19:30 Echo 2d Mode Cardiac US 08/25/25 Logged DOP 19:27 Condition: Stable BLANCA 10/29/25 In Process 19:27 Acetaminophen Tablet PHA 08/25/25 In Process (Tylenol Tablet) 19:30 Bedrest With Bathroom BLANCA 08/25/25 In Process Privileg 19:27 Insulin R (Human) PHA 08/25/25 In Process (Insulin R) 22:00 Date of Service: Aug 25, 2025 Billing Provider: ANDRES NEGRETE Common Visit Codes: [id number] INP/OBS CARE (HIGH) ANDRES NEGRETE Aug 25, 2025 21:44
[2025-08-25 21:46] VITALS: BP 144/77; PULSE 66; RESP 17; TEMP 97.3; O2SAT 99
[2025-08-25] MEDS: InsuLIN REG 1unit/0.01ml Soln (100units/ml) SC SCH (22:14)
[2025-08-25] MEDS: ACCU-CHEK COMFORT CURVE STRIP VI SCH (22:15)
[2025-08-26 01:00] VITALS: BP_SYST 121; BP_SYST 131; BP_SYST 143; BP_DIAS 65; BP_DIAS 68; BP_DIAS 76; PULSE 58; PULSE 66; PULSE 72; RESP 18; TEMP 98; O2SAT 95; O2SAT 97; O2SAT 98
[2025-08-26 05:00] VITALS: BP 113/66; PULSE 63; RESP 18; TEMP 97.8; O2SAT 99
[2025-08-26 06:53] LABS: Potassium 4.9 mmol/L (3.5-5.1)
[2025-08-26 06:54] LABS: Anion Gap 10 (5-15); Calcium 8.9 mg/dL (8.7-10.4); Carbon Dioxide 24 mmol/L (20-31)
[2025-08-26 06:55] LABS: Chloride 112 mmol/L (98-107); Sodium 146 mmol/L (136-145)
[2025-08-26 06:59] LABS: BUN/Creatinine Ratio 14.7 (10.0-20.0); Blood Urea Nitrogen 23 mg/dL (9-23); Glucose 105 mg/dL (74-106)
[2025-08-26 08:10] VITALS: BP 112/77; PULSE 84; RESP 16; TEMP 97.7; O2SAT 99
[2025-08-26 12:10] VITALS: BP 136/72; PULSE 76; RESP 16; TEMP 98.5; O2SAT 99
[2025-08-26 13:05] VITALS: TEMP 36.9
--- NOTE | 2025-08-27 11:06 | DVHDS2 ---
Discharge Summary Date of Admission Aug 25, 2025 at 19:27 Date of Discharge: Aug 26, 2025 Labs/Diagnostic Data: Laboratory Results Test 08/26/25 06:02 08/26/25 05:32 08/25/25 19:56 08/25/25 17:30 POC Glucose 116 mg/dl (70-106) Sodium Level 146 mmol/L (136-145) Potassium Level 4.9 mmol/L (3.5-5.1) Chloride Level 112 mmol/L (98-107) Carbon Dioxide Level 24 mmol/L (20-31) Anion Gap 10 (5-15) Blood Urea Nitrogen 23 mg/dL (9-23) Creatinine 1.56 mg/dL (0.700-1.30) Glomerular Filtration Rate Calc 44 mL/min (>90) BUN/Creatinine Ratio 14.7 (10.0-20.0) Serum Glucose 105 mg/dL (74-106) Calcium Level 8.9 mg/dL (8.7-10.4) Thyroid Stimulating Hormone (TSH) 1.64 uIU/mL (0.55-4.78) Urine Color Light-yellow (Yellow) Urine Clarity Clear (Clear) Urine pH 5.5 (5.0-9.0) Urine Specific [place] 1.015 (1.001-1.035) Urine Protein Negative (Negative) Urine Ketones Trace (Negative) Urine Blood Negative /uL (Negative) Urine Nitrite Negative (Negative) Urine Bilirubin Negative (Negative) Urine Urobilinogen Normal mg/dL (Negative) Urine Leukocyte Esterase Negative /uL (Negative) Urine RBC 1 /hpf (0 - 3) Urine Microscopic WBC /HPF (0-3) Urine Squamous Epithelial Cells Few /hpf (<5) Urine Bacteria None seen /hpf (None Seen) Urine Glucose 4+ mg/dL (Normal) Test 08/25/25 15:46 08/25/25 14:40 Troponin I High Sensitivity 3 ng/L (</=54) White Blood Count 5.4 10^3/uL (4.4-10.8) Red Blood Count 4.85 10^6/uL (4.5-5.90) Hemoglobin 13.3 g/dL (13.5-17.5) Hematocrit 41.0 % (41.0-53.0) Mean Corpuscular Volume 84.5 fL (80.0-100.0) Mean Corpuscular Hemoglobin 27.4 pg (28.0-32.0) Mean Corpuscular Hemoglobin Concent 32.4 g/dL (32.0-36.0) Red Cell Distribution Width 15.9 % (11.8-14.3) Platelet Count 104 10^3/uL (140-450) Mean Platelet Volume 7.9 fL (6.9-10.8) Neutrophils (%) (Auto) 63.5 % (37.0-80.0) Lymphocytes (%) (Auto) 25.2 % (10.0-50.0) Monocytes (%) (Auto) 8.8 % (0.0-12.0) Eosinophils (%) (Auto) 1.7 % (0.0-7.0) Basophils (%) (Auto) 0.8 % (0.0-2.0) Neutrophils # (Auto) 3.4 10 ^3/uL (1.6-8.6) Lymphocytes # (Auto) 1.4 10 ^3/uL (0.4-5.4) Monocytes # (Auto) 0.5 10 ^3/uL (0-1.3) Eosinophils # (Auto) 0.1 10 ^3/uL (0-0.8) Basophils # (Auto) 0 10 ^3/uL (0-0.2) Nucleated Red Blood Cells 0.1 % Other Laboratory Tests 08/26/25 05:32 08/25/25 14:40 Brief Hx & Hospital Course: Final diagnoses: 1. Hypotension due to over medications Chronic kidney disease stage 3 Type 2 diabetes Coronary artery disease Benign prostatic hypertrophy History of prostate cancer Mixed hyperlipidemia Hospital course: 80-year-old female was working in his backyard and felt dizzy and lightheaded so he went inside and he had a presyncopal episode but did not lose consciousness His blood pressure was low He felt nauseated but no vomiting Came here with a blood pressure 110/53 In the field his blood pressure apparently was in the 70s systolic He was given IV fluids which improved his blood pressure and he felt better He says he has chronic kidney disease stage 3 His creatinine was 1.69 Today is 1.56 He is asymptomatic now in walking and ambulating well with no dizziness or lightheadedness Latest blood pressure 112/77 Discharged home Discontinue Jardiance Continue lisinopril 2.5 mg daily and the rest of his home medications which include tamsulosin and metformin and aspirin and statin He says the Jardiance was added to his regimen recently by his automotive tire technician Follow up with his PCP as soon as possible Condition at Discharge: Stable Final Diagnosis/Problems List Hypotension Chronic kidney disease stage 3 Type 2 diabetes Coronary artery disease Discharge Disposition: Home SNF Discharge Will this Physician continue t: No Discharge Instruct/Medications Diet: Consistent carbohydrate, Cardiac 2g Na,low cholest Activity: No Restrictions, As Tolerated Follow Up/Referral: PCP as soon as possible Medications: Discontinue Jardiance Resume other home medications Scheduled Aspirin (Aspirin 81), 81 MG PO DAILY, (Reported) Gabapentin (Gabapentin), 300 MG PO BID, (Reported) Insulin NPH (Human) (Isophane) (Humulin N Kwikpen), 20 UNITS SC BID, (Reported) Lisinopril (Lisinopril), 1 TAB PO DAILY, (Reported) Oxycodone W/ Acetaminophen (Apap/Oxycodone), 10-325 MG PO Q6HP, (Reported) Simvastatin (Simvastatin), 1 TAB PO DAILY, (Reported) Tamsulosin Hcl (Tamsulosin Hcl), 1 CAP PO DAILY, (Reported) Discharge Statement: "Patient was advised to return to the ER or call 911 if any headaches, dizziness, shortness of breath, chest pain, abdominal pain, bleeding, fevers, or worsening of medical condition. Patient was counseled about treatment plan, medications, possible side effects, patientverbalized understanding. All questions were answered to the best of my ability. This discharge took greater then 30 minutes in planning, reviewing documentation, counseling the patient, and discussing with other team members." ASSESSMENT ASSESSMENT Assessment Hypotension Chronic kidney disease stage 3 Type 2 diabetes Coronary artery disease Date of Service: Aug 26, 2025 Billing Provider: RUDDY CURRAN MD Common Visit Codes: NOT BILLABLE RUDDY CURRAN MD Aug 26, 2025 10:05
== END 2025-08-26 13:52 | disposition home or self-care (01) | DRG 74 ==
LOC: ER 14:13 → EDBD 14:13 → OVERFLOW 19:27 → WEST WING 21:44
PROVIDERS: ADMIT Internal Medicine Geriatric Medicine; ATTEND Internal Medicine Geriatric Medicine
DX: G90.89 Other disorders of autonomic nervous system (principal); E86.0 Dehydration; I95.2 Hypotension due to drugs; E11.22 Type 2 diabetes mellitus with diabetic chronic kidney disease; I25.10 Atherosclerotic heart disease of native coronary artery without angina pectoris; I12.9 Hypertensive chronic kidney disease with stage 1 through stage 4 chronic kidney disease, or unspecified chronic kidney disease; N40.0 Benign prostatic hyperplasia without lower urinary tract symptoms; E78.2 Mixed hyperlipidemia; N18.30 Chronic kidney disease, stage 3 unspecified; T50.995A Adverse effect of other drugs, medicaments and biological substances, initial encounter; Z79.4 Long term (current) use of insulin; Z79.899 Other long term (current) drug therapy; Z85.46 Personal history of malignant neoplasm of prostate; Y92.89 Other specified places as the place of occurrence of the external cause
CPT/HCPCS: 36415; 70450; 71045; 80048; 81001; 82962; 84443; 84484; 85025; 93005; 96360; 99291; 99292; G0378; J1815